=== PATIENT | female | born 1955 | race Caucasian/White ===

== ENCOUNTER 2017-10-05 16:23 | Outpatient (CLI) | payer MEDICARE, MEDICAID ==
--- NOTE | 2017-10-06 09:45 | MRI Report ---
EXAM: MRI LUMBAR SPINE WITHOUT CONTRAST EXAM DATE: 10/05/2017 05:45 PM. CLINICAL HISTORY: Low back pain. COMPARISON: None. TECHNIQUE: Multiplanar, multisequence T1-weighted and fluid-sensitive sequences of the lumbar spine f rom T12 to S1 without contrast. Other: None. FINDINGS: Spinal Cord: The conus terminates at L1. The conus medullaris and cauda equina are unremarkable. Alignment: No spondylolysis or spondylolisthesis. Bone Marrow: Five [id number] lumbar vertebral bodies are assumed. Vertebral body heights in the lumbar spine are maintained. No acute marrow edema. Disk Levels/Facets: T12-l1: Unremarkable. L1-L2: Minimal early facet arthropathy. No stenosis or disk herniation, otherwise unremarkable. L2-L3: Minimal degenerative changes, no disk herniation or stenosis. L3-L4: Mild degenerative disk disease and facet arthropathy. Minimal bulging annulus. No focal disk e xtrusion or stenosis. L4-L5: Mild degenerative disk disease. Hoiv-wy-znnjjdpw facet arthropathy with ligamentum flavum thic kening. Broad-based disk bulge extending laterally into both neural foramina. Probable left intrafora natacha annular fissure. Mild stenosis of the central canal, lateral recesses and bilateral neural fora foreign (probably worse on the left than the right). L5-S1: Mild left and moderate right facet arthropathy. Intact disk space. No disk herniation, stenosi s or focal nerve root impingement. Musculature: No acute edema. Mild diffuse fatty atrophy. Other: None. IMPRESSION: Chronic-appearing degenerative changes at multiple lumbar levels. These findings are most severe as described above at the L4-L5 level. High-grade stenosis or definite nerve root compression is not clearly identified though stenosis which is present is probably most prominent at the level o f the left neural foramen where there is a shallow intraforaminal disk protrusion with annular fissur e. Comment: The following findings are so common in adults without low back pain that while we report th eir presence, they must be interpreted with caution and in the context of the clinical situation. (Re herber Dykes et al, Spine 2001) Prevalence of findings in patients without low back pain: Disk degeneration (any evidence): 92% Disk desiccation/T2 signal loss: 83% Disk height loss: 56% Disk bulge: 64% Disk protrusion: 32% Annular tear/high intensity zone: 38% [facility] Referring Provider Line: [phone] SITE ID: [id number]
== END 2017-10-05 16:24 | disposition home or self-care (01) ==
LOC: DI 16:23
PROVIDERS: ATTEND Physician Assistant Medical
DX: M51.36 Other intervertebral disc degeneration, lumbar region (principal); M47.896 Other spondylosis, lumbar region
CPT/HCPCS: 72148